=== PATIENT | male | born 1950 | race African-American/Black ===

== ENCOUNTER 2018-10-23 14:51 | Inpatient (IN) | payer OTHER ==
[~2018-10-23] VITALS: Ht 185.4 cm; Wt 88.0 kg
[2018-10-23 15:04] VITALS: BP_SYST 144
[2018-10-23] MEDS ORDERED: ONDANSETRON HCL 4 MG/2 ML VIAL IVP ONE (15:30)
[2018-10-23 15:43] LABS: BASOPHILS % (AUTO) 0.7 % (0.0-2.0); EOSINOPHILS # (AUTO) 0.1 K/uL (0.0-0.4); EOSINOPHILS % (AUTO) 2.3 % (0.0-4.0); HEMATOCRIT 48.8 % (36-54); HEMOGLOBIN 16.2 g/dL (14.0-18.0); LYMPHOCYTES % (AUTO) 42.9 % (20.5-51.5); MEAN CORPUSCULAR HEMOGLOBIN 31 pg (27-31); MEAN CORPUSCULAR HGB CONC 33 % (32-36); MEAN CORPUSCULAR VOLUME 92 fL (79.0-98.0); MONOCYTES # (AUTO) 0.5 K/uL (0.0-1.0); MONOCYTES % (AUTO) 10.7 % (1.7-9.3); NEUTROPHILS % (AUTO) 43.4 % (40.0-70.0); PLATELET COUNT (AUTO) 171 K/uL (130-430); RED BLOOD CELL COUNT(AUTO) 5.31 MIL/uL (4.2-6.2); RED CELL DISTRIBUTION WIDTH 13.8 % (9.0-15.0); WHITE BLOOD COUNT (AUTO) 4.7 K/uL (4.8-10.8)
[2018-10-23 15:53] LABS: CALCIUM 10.1 mg/dL (8.4-11.0); CREATININE 1.17 mg/dL (0.55-1.30); POTASSIUM 4.9 mmol/L (3.5-5.1)
[2018-10-23 15:57] LABS: PROTHROMBIN TIME 9.9 SECS (9.5-12.5)
[2018-10-23 15:58] LABS: ALBUMIN 4.1 g/dL (3.4-4.8); TOTAL BILIRUBIN 1.1 mg/dL (0.0-1.0)
[2018-10-23] MEDS ORDERED: PROP10TA10 PO (16:41)
[2018-10-23] MEDS ORDERED: METF1000 PO (16:41)
[2018-10-23] MEDS ORDERED: ATOR10TA68 PO (16:41)
[2018-10-23] MEDS ORDERED: MECLIZINE HCL 25 MG TABLET (ANITVERT) PO ONE (17:00)
[2018-10-23 17:58] VITALS: BP_SYST 143
[2018-10-23 20:00] VITALS: BP_SYST 132
[2018-10-23] MEDS ORDERED: INSULIN REGULAR, HUMAN 100 UNITS/ML, 10 ML VIAL (humuLIN R) SUBCUT PRN (20:15)
[2018-10-23] MEDS ORDERED: DEXTROSE 50% JECT 50 ML DISP.SYRIN IVP PRN (20:15)
[2018-10-24] VITALS: BP_SYST 113
[2018-10-24] MEDS: metFORMIN HCL 500 MG TABLET PO SCH ×2 (07:46→18:03)
[2018-10-24 08:00] VITALS: BP_SYST 133
[2018-10-24] MEDS: ATORVASTATIN 10 MG TABLET PO SCH (09:42)
[2018-10-24] MEDS: PROPRANOLOL HCL 10 MG TABLET (INDERAL) PO SCH (09:43)
[2018-10-24 12:13] LABS: CHOLESTEROL 179 mg/dL (<200); HDL CHOLESTEROL 42 mg/dL (>45); LDL CHOLESTEROL 104 mg/dL (<100); TRIGLYCERIDES 215 mg/dL (30-150)
[2018-10-24] MEDS ORDERED: ASPIRIN 325 MG TABLET (ECOTRIN) PO ONE (12:30)
[2018-10-24 12:36] VITALS: BP_SYST 123
[2018-10-24 15:52] VITALS: BP_SYST 115
[2018-10-24 20:00] VITALS: BP_SYST 112
[2018-10-25] VITALS: BP_SYST 127
[2018-10-25 08:49] VITALS: BP_SYST 122
[2018-10-25] MEDS: metFORMIN HCL 500 MG TABLET PO SCH (09:00)
[2018-10-25] MEDS: ATORVASTATIN 10 MG TABLET PO SCH (09:00)
[2018-10-25] MEDS ORDERED: ASPIRIN 325 MG TABLET (ECOTRIN) PO SCH (09:00)
[2018-10-25] MEDS: PROPRANOLOL HCL 10 MG TABLET (INDERAL) PO SCH (09:01)
[2018-10-25 10:24] VITALS: BP_SYST 122
== END 2018-10-25 10:55 | disposition home or self-care (01) | DRG 641 ==
LOC: SED 14:51 → STU 16:48
PROVIDERS: ADMIT Internal Medicine Hospice and Palliative Medicine; ATTEND Internal Medicine Hospice and Palliative Medicine
DX: E86.0 Dehydration (principal); E11.9 Type 2 diabetes mellitus without complications; E78.5 Hyperlipidemia, unspecified; I10 Essential (primary) hypertension; Z88.8 Allergy status to other drugs, medicaments and biological substances; Z79.899 Other long term (current) drug therapy; Z87.891 Personal history of nicotine dependence
CPT/HCPCS: 36415; 70450-TC; 70551; 71045; 80053; 80061; 82962; 84484; 85025; 85610-TC; 85730-TC; 93005; 93306; 93880; 96374; 99285; G0378; J1815; J2405; J8597